=== PATIENT | male | born 1995 | race Hispanic/Latino ===

== ENCOUNTER 2021-07-22 13:07 | Emergency (ER) | payer OTHER ==
[~2021-07-22] VITALS: Ht 175.3 cm; Wt 75.0 kg
[~2021-07-22 13:07] MED LIST: BENADRYL 50MG C50 MG PO; FLEXERIL5 M1 PO; MEDDOSEPAK PO; NAPROSYN500 MG PO; PEPCID20 MG PO; PERCOCET 5/325M1 TAB PO
[2021-07-22] MEDS ORDERED: AMOX/K CLAV875 M1 PO (15:02)
[2021-07-22] MEDS ORDERED: FLONASE AL50 MCG/ACT (15:02)
[2021-07-22 15:20] VITALS: BP 138/85
== END 2021-07-22 15:20 | disposition home or self-care (01) ==
LOC: ED 13:07
DX: J01.90 Acute sinusitis, unspecified (principal); Z20.822 Contact with and (suspected) exposure to COVID-19

== ENCOUNTER 2022-10-17 11:36 | Emergency (ER) | payer OTHER ==
[~2022-10-17] VITALS: Ht 175.3 cm; Wt 95.2 kg
[~2022-10-17 11:36] MED LIST changes: +AMOX/K CLAV875 M1 PO; +FLONASE AL50 MCG/ACT
[2022-10-17 12:10] LABS: BASO% 0.1 % (0-3); EOS% 0.6 % (0-8); HEMOGLOBIN 14.9 g/dl (14.0-18.0); IMMATURE GRANULOCYTES 0.1 % (0.0-5.0); LYMPH% 3.8 % (15-41); MEAN CORPUSCULAR HGB 30.5 pG CALC (26.0-32.0); MEAN CORPUSCULAR HGB CONC 32.7 g/dL CAL (32.0-36.0); MONO% 3.8 % (2-13); NEUT# 15.47 thou/uL (1.82-7.42); NEUT% 91.6 % (42-76); RED BLOOD COUNT 4.89 mill/uL (4.70-6.10); RED CELL DISTRI WIDTH 11.9 % (11.5-15.5)
[2022-10-17 12:11] LABS: HEMATOCRIT 45.5 % (39.0-50.0)
[2022-10-17 12:43] LABS: ALBUMIN 5.1 g/dL (3.2-5.0); ANION GAP 11 (6-22 (CALC)); BUN 8 mg/dL (9-20); BUN/CREATININE RATIO 11 (12-20 (CALC)); CARBON DIOXIDE 28 mmol/l (22-30); CHLORIDE 105 mmol/l (95-108); CREATININE 0.8 mg/dL (0.7-1.3); GFR FOR AFR.AMER. > 60 ML/MIN (>=60 (CALC)); GFR OTHER RACES > 60 ML/MIN (>=60 (CALC)); LIPASE 57 u/l (23-300); POTASSIUM 3.7 mmol/l (3.5-5.1); SGOT/AST 47 u/l (17-59); SODIUM 140 mmol/l (137-146); TOTAL PROTEIN 7.8 g/dL (6.3-8.2)
[2022-10-17 12:44] LABS: ALKALINE PHOSPHATASE 84 u/l (38-126); BILIRUBIN, TOTAL 0.8 mg/dL (0.2-1.3)
[2022-10-17] MEDS ORDERED: ZOFRAN4 MG/TAB PO (14:09)
[2022-10-17 14:38] VITALS: BP 155/91
[2022-10-17 15:11] LABS: URINE BILIRUBIN - DIPSTICK NEGATIVE (NEGATIVE); URINE BLOOD DIPSTICK NEGATIVE (NEGATIVE); URINE COLOR YELLOW; URINE GLUCOSE - DIPSTICK NEGATIVE (NEGATIVE); URINE KETONE 15 mg/dL (NEGATIVE); URINE LEUK ESTERASE NEGATIVE (NEGATIVE); URINE PH 6.5 (4.5-8.0); URINE PROTEIN - DIPSTICK NEGATIVE (NEG-TRACE); URINE SPECIFIC GRAVITY 1.025; URINE UROBILINOGEN - DIPSTICK 0.2 E.U./dL (0.2)
[2022-10-17 15:14] LABS: URINE NITRITE - DIPSTICK NEGATIVE (Negative)
== END 2022-10-17 15:20 | disposition home or self-care (01) ==
LOC: ED 11:36
PROVIDERS: Family Medicine; Nurse Practitioner
DX: R11.2 Nausea with vomiting, unspecified (principal); Z20.822 Contact with and (suspected) exposure to COVID-19
CPT/HCPCS: Q9967